=== PATIENT | male | born 1940 | race Caucasian/White ===

== ENCOUNTER → 2020-09-09 | Outpatient (CLI) | payer OTHER ==
[~2020-09-09] MED LIST: ALDACTONE25 MG PO; ANORO ELLIPTA1 EACH INH; ASPIRIN CHEWABL81 MG PO; ATORVASTATIN CA40 MG PO; BROVANA15 MCG/2 M INH; CATAPRES 0.1MG0.1 MG PO; CEFUROXIME500 MG PO; CENTRUM SILVER1 EAC1 PO; COREG 25MG TAB25 MG PO; CYCLOBENZAPRINE10 MG PO; DICLOFENAC SODI75 MG PO; FLOMAX0.4 MG PO; FUROSEMIDE40 MG PO; GLUCOPHAGE1000 MG PO; HYDROCODONE-AC1 EACH PO; HYGROTON TAB 2525 MG PO; ICAPS AREDS FO1 EACH PO; IPRAT-ALBUT 0.5-3 ML NEB; K-DUR TAB 20 M20 MEQ PO; LEVAQUIN750 MG PO; MICROZIDE12.5 MG PO; MONOPRIL TAB 1010 MG PO; NEURONTIN800 MG PO; NORVASC 5 MG TAB5 MG PO; NORVASC2.5 MG PO; OMNICEF 300 MG300 MG PO; PRILOSEC OTC20 MG PO; PROAIR HFA8.5 GM INH; PROSCAR5 MG PO; PULMICORT0.5 MG/2 M INH; TENORMIN100 MG PO; TESSALON PERLE100 MG PO; TYLENOL PM EX-1 EACH PO; VENTOLIN HFA 66.7 GM INH; VIAGRA100 MG PO; ZITHROMAX250 MG PO
== END ==
LOC: KOH-I 15:44
DX: I65.23 Occlusion and stenosis of bilateral carotid arteries (principal); M79.7 Fibromyalgia; S83.282A Other tear of lateral meniscus, current injury, left knee, initial encounter; M54.5 Low back pain; E11.9 Type 2 diabetes mellitus without complications
CPT/HCPCS: 93880

== ENCOUNTER 2020-09-10 14:34 | Emergency (ER) | payer OTHER ==
[~2020-09-10 14:34] MED LIST changes: -HYDROCODONE-AC1 EACH PO
[2020-09-10] MEDS ORDERED: HYDROCODONE-AC1 EACH PO (16:24)
== END 2020-09-10 17:25 | disposition home or self-care (01) ==
LOC: ER1 14:34
DX: S20.212A Contusion of left front wall of thorax, initial encounter (principal); W18.40XA Slipping, tripping and stumbling without falling, unspecified, initial encounter
CPT/HCPCS: 71111; 93005; 99283

== ENCOUNTER → 2020-11-19 | Outpatient (CLI) | payer OTHER ==
[~2020-11-19] MED LIST changes: +HYDROCODONE-AC1 EACH PO
== END ==
LOC: RT 12:42
DX: I10 Essential (primary) hypertension (principal); E11.9 Type 2 diabetes mellitus without complications; I44.0 Atrioventricular block, first degree
CPT/HCPCS: 93005

== ENCOUNTER → 2021-09-11 | Outpatient (CLI) | payer OTHER | LOC: EXRD 10:44 | DX: I65.23 Occlusion and stenosis of bilateral carotid arteries (principal); M62.81 Muscle weakness (generalized); K52.9 Noninfective gastroenteritis and colitis, unspecified; M54.50 Low back pain, unspecified; E11.9 Type 2 diabetes mellitus without complications; D49.59 Neoplasm of unspecified behavior of other genitourinary organ; R60.9 Edema, unspecified | CPT/HCPCS: 93880 ==

== ENCOUNTER 2021-11-13 15:55 | Emergency (ER) | payer OTHER ==
[2021-11-13] MEDS ORDERED: PROTONIX40 MG PO (20:39)
== END 2021-11-13 21:40 | disposition home or self-care (01) ==
LOC: ER1 15:55
PROVIDERS: Surgery
PROC: 0DC58ZZ Extirpation of Matter from Esophagus, Via Natural or Artificial Opening Endoscopic (ICD-10-PCS; principal; 2021-11-13 17:55)
DX: T18.128A Food in esophagus causing other injury, initial encounter (principal); K21.00 Gastro-esophageal reflux disease with esophagitis, without bleeding; E11.9 Type 2 diabetes mellitus without complications; I10 Essential (primary) hypertension; J44.9 Chronic obstructive pulmonary disease, unspecified; G47.30 Sleep apnea, unspecified; X58.XXXA Exposure to other specified factors, initial encounter; Z79.84 Long term (current) use of oral hypoglycemic drugs
CPT/HCPCS: 93005; 96374; 96375; 99284; C9113; J1100; J1610; J2405; J2704; J3010; J7040